=== PATIENT | male | born 1990 | race Caucasian/White ===

== ENCOUNTER 2018-05-20 17:36 | Emergency (ER) | payer MEDICAID ==
[~2018-05-20] VITALS: Ht 182.9 cm; Wt 72.6 kg
[2018-05-20 18:00] VITALS: BP_SYST 136
[2018-05-20 18:53] LABS: BILIRUBIN,URINE NEGATIVE (NEGATIVE); BLOOD, URINE TRACE (NEGATIVE); CLARITY/URINE CLEAR (CLEAR); COLOR,URINE YELLOW (YELLOW); GLUCOSE,URINE NEGATIVE (NEGATIVE); KETONES,URINE NEGATIVE (NEGATIVE); LEUKOCYTE ESTERASE ,URINE NEGATIVE (NEGATIVE); NITRITE, URINE NEGATIVE (NEGATIVE); PH,URINE 7.5 (5.0-8.0); PROTEIN URINE NEGATIVE (NEGATIVE); UROBILINOGEN,URINE 0.2 (0.2-1.0)
[2018-05-20 18:58] LABS: BACTERIA,URINE RARE /HPF (None Seen); RBC,URINE 0-3 /HPF (0-3); WBC,URINE 0-3 /HPF (0-3)
--- NOTE | 2018-05-20 19:29 | NUR ---
Pt ambulatory to bed 6 for evaluation
[2018-05-20] MEDS ORDERED: AZITHROMYCIN 250 MG TABLET PO ONE (20:00)
[2018-05-20] MEDS ORDERED: cefTRIAXone 250 MG in LIDOCAINE 1%, 20 ML MDV 0.9 ML IM ONE (20:00)
--- NOTE | 2018-05-20 20:00 | NUR ---
Pt AAOx4 ambulated into ED c/o intermittent 7/10 pain to bilateral posterior testicles x 3 months with worsening symptoms x "a few days." Pt denies dysuria/n/v/d. Breathing even and unlabored. No other injuries/complaints per pt/noted. Will continue to monitor.
--- NOTE | 2018-05-20 20:04 | NUR ---
ER SALBADOR Yanes examining patient.
--- NOTE | 2018-05-20 20:18 | NUR ---
Medication administered. Pt tolerated well. No adverse reactions noted.
--- NOTE | 2018-05-20 21:02 | NUR ---
Patient given written and verbal discharge instructions and verbalizes understanding. ER SALBADOR Yanes discussed with patient the results and treatment provided. Patient in stable condition. ID arm band removed. Rx of Motrin, Macrobid, Pyrdium given. Patient educated on pain management and to follow up with PMD. Pain Scale 2. STEVEDORE DOCK Farzana aware. Opportunity for questions provided and answered. Medication side effect fact sheet provided.
[2018-05-20 21:03] VITALS: BP_SYST 124
[2018-05-22 23:18] LABS: CHLAMYDIA TRACHOMATIS NAA Negative (Negative); NEISSERIA GONORRHOEAE NAA Negative (Negative)
== END 2018-05-20 21:03 | disposition home or self-care (01) ==
LOC: SED 17:36
DX: N43.3 Hydrocele, unspecified (principal); N50.82 Scrotal pain; N30.90 Cystitis, unspecified without hematuria; R03.0 Elevated blood-pressure reading, without diagnosis of hypertension
CPT/HCPCS: 76870; 81000; 87491; 87591; 96372; 99284; J0696; J2001; Q0144